=== PATIENT | female | born 2000 | race Hispanic/Latino ===

== ENCOUNTER 2023-09-01 14:41 | Outpatient (CLI) | payer OTHER | END 2023-09-01 14:42 | disposition home or self-care (01) | LOC: CSHULT 14:41 | PROVIDERS: ATTEND Family Medicine | DX: Z34.03 Encounter for supervision of normal first pregnancy, third trimester (principal); Z3A.34 34 weeks gestation of pregnancy | CPT/HCPCS: 76805 ==

== ENCOUNTER 2023-09-28 04:55 | Inpatient (IN) | payer OTHER ==
[2023-09-28] MEDS ORDERED: fentaNYL/Ropivacaine Epidural 100 ML ONE (08:50)
[2023-09-28 08:58] LABS: Hemoglobin 13.4 g/dL (12.0-15.5); Mean Corpuscular HGB CONC 35.3 g/dL (32.0-36.0); Mean Corpuscular Hemoglobin 32.1 pg (27.0-33.0); Mean Corpuscular Volume 91.1 fl (81.6-98.3); Mean Platelet Volume 10.8 fl (7.4-10.4); Platelet Count 215 10x3/uL (150-450); RBC Distribution Width 12.3 % (11.5-14.5); Red Blood Cell (RBC) Count 4.17 10x6/uL (3.90-5.03); White Blood Cell (WBC) Count 14.3 10x3/uL (3.5-10.5)
[2023-09-28 09:02] VITALS: BMI 30.2
[2023-09-28] MEDS ORDERED: Ondansetron PF 4 MG/2 ML Vial IVP PRN ×2 (10:22→18:20)
[2023-09-28] MEDS ORDERED: Acetaminophen 325 MG TAB PO PRN (10:22)
[2023-09-28] MEDS ORDERED: Naloxone HCl 0.4 mg/ml Vial IVP PRN ×2 (10:22)
[2023-09-28] MEDS ORDERED: Promethazine HCl 25 MG/ML VIAL IM PRN (10:22)
[2023-09-28] MEDS ORDERED: ePHEDrine Sulfate 50 MG/10 ML VIAL SLOW IVP PRN (10:22)
[2023-09-28] MEDS ORDERED: Moisturizing Cream (Eucerin) 113 GM JAR TOP PRN (10:22)
[2023-09-28] MEDS ORDERED: diphenhydrAMINE 50 MG/ML VIAL IVP PRN (10:22)
[2023-09-28] MEDS ORDERED: Lactated Ringer's 500 ML IV PRN (10:22)
[2023-09-28] MEDS ORDERED: fentaNYL 2 mcg/Ropivacaine 0.2% Epidural 100 ML CADD EPIDURAL SCH (10:30)
[2023-09-28] MEDS ORDERED: Communication Order-Pharmacy FS SCH (10:30)
[2023-09-28] MEDS ORDERED: Oxytocin 30 units/NS 500 ML 500 ML ONE (13:46)
[2023-09-28] MEDS ORDERED: diphenhydrAMINE 25 MG CAP PO PRN (18:20)
[2023-09-28] MEDS ORDERED: hydrALAZINE 20 MG/ML VIAL SLOW IVP PRN (18:20)
[2023-09-28] MEDS ORDERED: Milk Of Magnesia 30 ML UDCUP PO PRN (18:20)
[2023-09-28] MEDS ORDERED: Bisacodyl 10 MG SUPP PR PRN (18:20)
[2023-09-28] MEDS ORDERED: Lanolin Ointment 7 GM TUBE TOP PRN (18:20)
[2023-09-28] MEDS ORDERED: Preparation H Ointment 28 GM TUBE PR PRN (18:20)
[2023-09-28] MEDS ORDERED: Boostrix 0.5 ML (Tdap) VIAL (>/=7 yrs of age) IM ONE (18:20)
[2023-09-28] MEDS ORDERED: Benzocaine-Menthol 82.5 ML CAN TOP PRN (18:20)
[2023-09-28] MEDS: Docusate 100 MG CAP PO SCH (20:56)
[2023-09-28] MEDS: HYDROcodone/Acetaminophen 5/325 mg Tablet PO PRN (20:56)
[2023-09-28] MEDS: Ibuprofen 800 MG TAB PO SCH (20:56)
[2023-09-29] MEDS: Ibuprofen 800 MG TAB PO SCH ×3 (04:53→22:10)
[2023-09-29] MEDS: Ferrous Sulfate 325 MG TAB PO SCH ×2 (10:16→17:11)
[2023-09-29] MEDS: Prenatal Vitamin 1 TAB PO SCH (10:18)
[2023-09-29] MEDS: Docusate 100 MG CAP PO SCH ×2 (10:18→22:11)
[2023-09-29] MEDS: HYDROcodone/Acetaminophen 5/325 mg Tablet PO PRN ×2 (10:30→19:40)
[2023-09-30] MEDS: Ibuprofen 800 MG TAB PO SCH ×2 (05:34→13:11)
[2023-09-30 07:25] VITALS: BP 101/57; TEMP 98.2
[2023-09-30] MEDS: Ferrous Sulfate 325 MG TAB PO SCH (07:51)
[2023-09-30] MEDS: Prenatal Vitamin 1 TAB PO SCH (08:24)
[2023-09-30] MEDS: HYDROcodone/Acetaminophen 5/325 mg Tablet PO PRN ×2 (08:24→13:15)
[2023-09-30] MEDS: Docusate 100 MG CAP PO SCH (08:24)
== END 2023-09-30 16:00 | disposition home or self-care (01) | DRG 807 ==
LOC: CSHLD/OP 04:55 → CSHLD 08:46 → CSHPP 18:43
PROVIDERS: ADMIT Family Medicine; ATTEND Family Medicine
PROC: 10E0XZZ Delivery of Products of Conception, External Approach (ICD-10-PCS; principal; 2023-09-28)
PROC: 0UQMXZZ Repair Vulva, External Approach (ICD-10-PCS; 2023-09-28)
DX: O71.82 Other specified trauma to perineum and vulva (principal); Z37.0 Single live birth; Z3A.38 38 weeks gestation of pregnancy; Z79.82 Long term (current) use of aspirin
CPT/HCPCS: 36415; 51702; 85027; 86850; 86900; 86901; 99285